=== PATIENT | female | born 1960 | race Caucasian/White ===

== ENCOUNTER → 2019-02-13 | Outpatient (CLI) | payer BC ==
[~2019-02-13] MED LIST: CALC500T30 PO; DIPH25CA58 PO; LISI-338 PO; MULT-18 PO
--- NOTE | 2019-02-13 17:01 | KCIC ---
EXAM: CT ABDOMEN/PELVIS WITHOUT CONTRAST. HISTORY: Concern for rectovaginal fistula, rectal bleeding. TECHNIQUE: Computed tomography of the abdomen and pelvis was performed without intravenous contrast. COMPARISON: None. FINDINGS: Lung windows through the visualized portions of the bases reveal no abnormality. Bone windows reveal no suspicious lesions. The liver, gallbladder, pancreas, adrenal glands, spleen and kidneys are unremarkable without contrast. There are no renal or ureteral calculi. There are no pathologically enlarged lymph nodes. Surgical clips are noted in the left inguinal region. The uterus is surgically absent. No clear fistula or scarring suggestive of a rectovaginal fistula is identifiable by this technique. The rectum demonstrates no clear mass or wall thickening to suggest a cause for hemorrhage. More proximally, sigmoid diverticulosis is mild. It is also mild along the cecum. The appendix is not inflamed. Contrast has traversed the rectum, and no extravasation is identified. There is no small bowel obstruction. A small umbilical hernia contains only fat. A duodenal diverticulum along the third portion measures 2.5 cm. A small hiatal hernia is suspected. IMPRESSION: 1. Status post hysterectomy. No evidence of rectovaginal fistula by this technique. 2. Mild right colonic and sigmoid diverticulosis. No cause for lower gastrointestinal hemorrhage is otherwise identified, though sensitivity is low. 3. Small hiatal hernia. Small umbilical hernia containing only fat. 4. A small fat-containing supraumbilical hernia has a thin neck measuring only 7 mm. The subcutaneous portion measures approximately 2.4 cm. *One or more of the following individualized dose reduction techniques were utilized for this examination: 1. Automated exposure control. 2. Adjustment of the mA and/or kV according to patient size. 3. Use of iterative reconstruction technique. Electronically signed by: Rocky Gray MD (02/13/2019 4:58 PM) [facility]
== END | disposition home or self-care (01) ==
LOC: KCIC CT 14:24
PROVIDERS: ATTEND Internal Medicine Gastroenterology
DX: K57.30 Diverticulosis of large intestine without perforation or abscess without bleeding (principal); K42.9 Umbilical hernia without obstruction or gangrene; K57.10 Diverticulosis of small intestine without perforation or abscess without bleeding; K44.9 Diaphragmatic hernia without obstruction or gangrene; Z90.710 Acquired absence of both cervix and uterus
CPT/HCPCS: 74176